=== PATIENT | female | born 1960 | race Hispanic/Latino ===

== ENCOUNTER → 2018-07-22 | Outpatient (CLI) | payer OTHER ==
--- NOTE | 2018-07-22 10:43 | Diagnostic Imaging Report ---
EXAMINATION: PA and lateral views of the chest. COMPARISON: None CLINICAL HISTORY: Obstructive sleep apnea, chest pain, shortness of breath DISCUSSION: Mild left hemidiaphragmatic elevation. Lungs show no evidence of consolidation, pleural effusion, or pneumothorax. Tortuous thoracic aorta. Heart size at the upper limits of normal, without pulmonary edema. No acute osseous abnormality. Mild degenerative disc changes of the thoracic spine. Surgical clips project over the upper abdomen on the lateral radiograph likely related to cholecystectomy. IMPRESSION: No acute cardiopulmonary abnormalities. Signed by: Dr. Familia Bae M.D. on 07/22/2018 10:40 AM
--- NOTE | 2018-07-22 10:55 | Diagnostic Imaging Report ---
EXAM: Bone mineral density study 07/22/2018 9:00 AM INDICATION: ^AGE-RELATED OSTEOPOROSIS W/O CURRENT PATH FX COMPARISON: None FINDINGS: Evaluation of the left hip and lumbar spine was performed. The study is technically adequate. The patient's fracture risk is compared to an age-matched control. The patient denies prior surgery/fracture of the spine, hips or forearm. LEFT HIP * Femoral neck bone mineral density: 0.847 gm/cm2, T-score is 0.0, Z-score is 1.1. * Total bone mineral density: 0.960 gm/cm2, T-score is 0.1, Z-score is 0.9. LUMBAR SPINE * Total bone mineral density: 0.851 gm/cm2, T-score is -1.8, Z-score is -0.6. IMPRESSION: 1. LEFT HIP: Bone mineralization by WHO Classification is normal, the fracture risk is not increased. 2. LUMBAR SPINE: Bone mineralization by WHO Classification is osteopenia, the fracture risk is medium. Signed by: Dr. Alcides Thayer M.D. on 07/22/2018 10:51 AM
== END ==
LOC: RAD 08:42
PROVIDERS: ATTEND Internal Medicine
DX: Z12.31 Encounter for screening mammogram for malignant neoplasm of breast (principal); M81.0 Age-related osteoporosis without current pathological fracture; G47.33 Obstructive sleep apnea (adult) (pediatric)
CPT/HCPCS: 71046; 77067; 77080

== ENCOUNTER 2018-08-08 18:10 | Inpatient (IN) | payer OTHER ==
[~2018-08-08] VITALS: Ht 157.5 cm; Wt 106.8 kg
--- OUTSIDE RECORDS SUMMARY | 2018-08-08 18:12 | XMS REPORT ---
Author Author [facility] Address Unknown Phone Unavailable Care Team Providers Care Class C Truck Driver Name Role Phone RAMIRO SEE Unavailable Unavailable Problems This patient has no known problems. Allergies, Adverse Reactions, Alerts This patient has no known allergies or adverse reactions. Medications This patient has no known medications. Results Test Description Test Time Test Comments Text Results Atomic Results Result Comments MAMMOGRAPHY DIGITAL SCR BILAT 2018-07-22 11:05:00 [place] [address] Patient Name: MAYRA CARBAJAL MR #: [id number] : 1960 Age/Sex: 57/F Req #: [id number] Adm Physician: Ordered by: RAMIRO SEE MD Report #: [id number] Location: [facility] Room/Bed: Procedure: [id number] MG/MAMMOGRAPHY DIGITAL SCR BILAT Exam Date: 07/22/18 Exam Time: 0900 REPORT STATUS: Signed #[id number] - [id number] #BILATERAL DIGITAL SCREENING MAMMOGRAM WITH CAD: 07/22/2018 CLINICAL: Routine screening. Comparison is made to exams dated: 10/23/2013 mammogram and 04/27/2011 mammogram - [facility]. Current study contains 5 films. There are scattered fibroglandular elements in both breasts. Current study was also evaluated with a Computer Aided Detection (CAD) system. There are benign vascular calcifications and calcifications in both breasts. There also are benign lymph nodes in both breasts. No significant masses, calcifications, or other findings are seen in either breast. There has been no significant interval change. IMPRESSION: BENIGN There is no mammographic evidence of malignancy. A 1 year screening mammogram is recommended. The patient will be notified by letter of the results. Amilcar moreno/merritt:07/31/2018 09:55:13 Greens Keeper: So MADRID)(Zain), [facility] letter sent: Compared to Prior B9 Mammogram BI-RADS: 2 Benign Dictated By: AMILCAR GUERRERO DO 4 Transcribed By: MERRITT on 07/31/18954 COPY TO: RAMIRO SEE MD BONE DXA DUAL ENERGY 2018-07-22 10:50:00 [place] [address] Patient Name: MAYRA CARBAJAL MR #: [id number] : 1960 Age/Sex: 57/F Req #: [id number] [facility] Physician: Ordered by: RAMIRO SEE MD Report #: [id number] Location: [facility] Room/Bed: Procedure: [id number] DX/BONE DXA DUAL ENERGY Exam Date: Exam Time: REPORT STATUS: Signed EXAM: Bone mineral density study 07/22/2018 9:00 AM INDICATION: AGE-RELATED OSTEOPOROSIS W/O CURRENT PATH FX COMPARISON: None FINDINGS: Evaluation of the left hip and lumbar spine was performed. The study is technically adequate. The patient's fracture risk is compared to an age-matched control. The patient denies prior surgery/fracture of the spine, hips or forearm. LEFT HIP * Femoral neck bone mineral density: 0.847 gm/cm2, T-score is 0.0, Z-score is 1.1. * Total bone mineral density: 0.960 gm/cm2, T-score is 0.1, Z-score is 0.9. LUMBAR SPINE * Total bone mineral density: 0.851 gm/cm2, T-score is -1.8, Z-score is -0.6. IMPRESSION: 1. LEFT HIP: Bone mineralization by WHO Classification is normal, the fracture risk is not increased. 2. LUMBAR SPINE: Bone mineralization by WHO Classification is osteopenia, the fracture risk is medium. Signed by: Dr. Eve Nelson M.D. on 07/22/2018 10:51 AM Dictated By: EVE NELSON MD 105 Transcri bed By: LORRI on 07/22/18 105 COPY TO: RAMIRO SEE MD CHEST 2 VIEWS 2018-07-22 10:36:00 [place] [address] Patient Name: MAYRA CARBAJAL MR #: [id number] : 1960 Age/Sex: 57/F Req #: [id number] Adm Physician: Ordered by: RAMIRO SEE MD Report #: [id number] Location: [facility] Room/Bed: Procedure: [id number] DX/CHEST 2 VIEWS Exam Date: 07/22/18 Exam Time: 0940 REPORT STATUS: Signed EXAMINATION: PA and lateral views of the chest. COMPAR AZEEM: None CLINICAL HISTORY: Obstructive sleep apnea, chest pain, shortness of breath DISCUSSION: Mild left hemidiaphragmatic elevation. Lungs show no evidence of consolidation, pleural effusion, or pneumothorax. Tortuous thoracic aorta. Heart size at the upper limits of normal, without pulmonary edema. No acute osseous abnormality. Mild degenerative disc changes of the thoracic spine. Surgical clips project over the upper abdomen on the lateral radiograph likely related to cholecystectomy. IMPRESSION: No acute cardiopulmonary abnormalities. Signed by: Dr. Amarilis Reece M.D. on 07/22/2018 10:40 AM Dictated By: AMARILIS REECE MD 1040 Transcribed By: LORRI on 07/22/18 1040 COPY TO: RAMIRO SEE MD
[2018-08-08] MEDS ORDERED: SODIUM CHLORIDE 0.9% 1000ML 1,000 ML IV ONE (19:00)
--- NOTE | 2018-08-08 19:00 | NUR ---
Walking rounds completed with Sushil table games shift manager nurse.
[2018-08-08] MEDS ORDERED: SODIUM CHLORIDE 0.9% 1000ML 1,000 ML ONE (19:03)
[2018-08-08] MEDS ORDERED: DIATRIZOATE MEGL/DIATRIZOA SOD 30 ML BTL PO ONE (19:20)
[2018-08-08 19:24] LABS: BASOPHILS % 0.2 % (0.0-1.0); EOSINOPHILS # (AUTO) 0.1 (0.0-0.4); EOSINOPHILS % 0.4 % (0.0-6.0); HEMOGLOBIN 15.3 g/dL (12.0-16.0); LYMPHOCYTES # (AUTO) 2.8 (1.0-3.2); LYMPHOCYTES % 19.9 % (18.0-39.1); MEAN CORPUSCULAR HEMOGLOBIN 29.2 pg (28-32); MEAN CORPUSCULAR VOLUME 85.9 fL (81-99); MONOCYTES # (AUTO) 0.8 (0.2-0.8); MONOCYTES % 5.7 % (4.4-11.3); NEUTROPHILS # (AUTO) 10.2 (2.1-6.9); NEUTROPHILS % 73.4 % (38.7-80.0); PLATELET COUNT 252 x10e3/uL (140-360); RED BLOOD COUNT 5.24 x10e6/uL (3.6-5.1); RED CELL DISTRIBUTION WIDTH 12.9 % (11.7-14.4)
[2018-08-08] MEDS ORDERED: ONDANSETRON HCL INJ 2MG/ML 2ML 2 MG/ML VIAL IV ONE (19:30)
[2018-08-08] MEDS ORDERED: PANTOPRAZOLE 40 MG 10ML VIAL IV ONE (19:30)
[2018-08-08 19:37] LABS: AMYLASE 67 U/L (25-125); LIPASE 35 U/L (8-78)
[2018-08-08 19:39] LABS: ALANINE AMINOTRANSFERASE 20 IU/L (0-55); ALBUMIN 3.8 g/dL (3.5-5.0); ALBUMIN/GLOBULIN RATIO 1.2 (0.8-2.0); ALKALINE PHOSPHATASE 59 IU/L (40-150); ANION GAP 18.9 mmol/L (8-16); BLOOD UREA NITROGEN 16 mg/dL (7-26); BUN/CREATININE RATIO 19 (6-25); CALCIUM 9.3 mg/dL (8.4-10.2); CARBON DIOXIDE 21 mmol/L (22-29); CHLORIDE 99 mmol/L (98-107); CREATININE, SERUM 0.85 mg/dL (0.57-1.11); EST GLOMERULAR FILTRATION RATE > 60 ML/MIN (60-); GLUCOSE 163 mg/dL (74-118); POTASSIUM 3.9 mmol/L (3.5-5.1); SODIUM 135 mmol/L (136-145)
[2018-08-08] MEDS ORDERED: MORPHINE SULFATE INJ 4 MG/ML INJ 1ML IV ONE (19:45)
[2018-08-08] MEDS: PIPER-TAZ 3.375 GM 50 ML IV SCH ×2 (21:00→22:00)
--- NOTE | 2018-08-08 21:09 | Diagnostic Imaging Report ---
EXAM: CT Abdomen and Pelvis WITH contrast INDICATION: Pain COMPARISON: None. TECHNIQUE: Abdomen and Pelvis was scanned utilizing a multidetector helical scanner after administration of IV contrast. Coronal and sagittal reformations were obtained. IV CONTRAST: 100 mL Isovue-370 COMPLICATIONS: None RADIATION DOSE: Total DLP:804 mGy*cm Estimated effective dose: (DLP x 0.015 x size factor) mSv CTDIvol has been reviewed. It is below the limits set by the Radiation Protocol Committee (RPC). Appropriate CT dose reduction techniques were utilized. FINDINGS: Abdomen: Lung Bases: No acute findings. Solid Organs: Cholecystectomy clips. There is a small amount of free fluid about the liver and spleen. Probable cyst right kidney. Otherwise, liver, adrenals, kidneys, spleen, and pancreas unremarkable. Upper GI Tract: Small hiatal hernia. There are several loops of small bowel in the right mid and lower abdomen with moderate wall thickening and dilated up to 36 mm. Moderate surrounding inflammatory stranding and small amount of fluid present. Gas present right lower quadrant images 43-47 is not distinctly intraluminal. Best demonstrated on coronal images this is a triangular-shaped area with apex in the central mesentery, for example coronal image 36, raising question of closed loop obstruction and/or torsion. Vascularity: Minimal aortic vascular calcifications with no aneurysm. Lymph Nodes: No suspicious adenopathy. Other: None. Pelvis: Bladder: Unremarkable. Other: Within limitations of CT, uterus/adnexa grossly unremarkable. Colon: No acute colonic findings. Appendix not inflamed. Bones: IMPRESSION: 1. Markedly inflamed loops of small bowel in the right mid and lower quadrant with wall thickening, dilation, surrounding inflammatory changes and fluid concerning for closed loop obstruction. Small area of gas right lower quadrant not definitely intraluminal raising question of focal perforation. Surgical consultation recommended. Case discussed with Dr. Gee in the emergency department at 9:00 PM 08/08/2018. Signed by: Dr. Mike Reddy MD on 08/08/2018 9:05 PM
[2018-08-08] MEDS ORDERED: DEXTROSE 50% SYRINGE 50 ML IV PRN (21:15)
[2018-08-08] MEDS ORDERED: ONDANSETRON HCL INJ 2MG/ML 2ML 2 MG/ML VIAL IV PRN (21:15)
[2018-08-08] MEDS ORDERED: MORPHINE SULFATE 2 MG/ML SYR 1ML IV PRN (21:15)
[2018-08-08] MEDS ORDERED: MORPHINE SULFATE INJ 4 MG/ML INJ 1ML IV PRN (21:30)
[2018-08-08] MEDS ORDERED: PIPER-TAZ 3.375 GM / NS 50ML IV SCH (22:00)
[2018-08-08] MEDS: SODIUM CHLORIDE 0.9% 1000ML 1,000 ML IV SCH (22:16)
[2018-08-08] MEDS: METRONIDAZOLE 500MG/NS 100ML 100 ML IV SCH (22:16)
[2018-08-08] MEDS ORDERED: LISINOPRIL10 MG PO (22:32)
[2018-08-08] MEDS ORDERED: farxiga PO (22:32)
[2018-08-08] MEDS ORDERED: ATORVASTATIN CA10 MG PO (22:32)
[2018-08-08] MEDS ORDERED: VITAMIN D350000 UNIT (22:32)
[2018-08-08] MEDS ORDERED: LORATADINE10 MG PO (22:32)
[2018-08-08] MEDS ORDERED: TRADJENTA5 MG PO (22:32)
[2018-08-08] MEDS ORDERED: FLUTICASONE PRO16 GM (22:32)
[2018-08-08] MEDS ORDERED: [UNRECOGNIZED DRUG - OTHER] PO (22:32)
[2018-08-08] MEDS ORDERED: ETODOLAC500 MG PO (22:32)
[2018-08-08] MEDS ORDERED: MONTELUKAST SOD10 MG PO (22:32)
[2018-08-08] MEDS ORDERED: BENZOCAINE 20% SPR 60 ML CAN MT ONE (22:45)
[2018-08-08 23:03] LABS: BILIRUBIN,URINE NEGATIVE (NEGATIVE); CLARITY,URINE HAZY (CLEAR); COLOR,URINE YELLOW (YELLOW); KETONES,URINE 1+ (NEGATIVE); LEUKOCYTE ESTERASE ,URINE NEGATIVE (NEGATIVE); NITRITE,URINE NEGATIVE (NEGATIVE); PROTEIN,URINE DIPSTICK NEGATIVE (NEGATIVE); URINE UROBILINOGEN 0.2 mg/dL (0.2 - 1)
[2018-08-08 23:04] LABS: PREGNANCY TEST, URINE NEGATIVE (NEGATIVE)
[2018-08-08] MEDS: SODIUM CHLORIDE 0.9% 250ML IRRIG IR SCH (23:17)
[2018-08-08 23:22] LABS: BACTERIA,URINE FEW /HPF; EPITHELIAL CELLS,URINE FEW /LPF; RBC,URINE 0-5 /HPF (0-5); YEAST,URINE FEW
[2018-08-08 23:45] VITALS: BP 110/56
--- NOTE | 2018-08-08 23:45 | Diagnostic Imaging Report ---
EXAM: ABDOMEN-1VIEW (KUB) DATE: 08/08/2018 11:11 PM INDICATION: NG tube placement COMPARISON: Same day CT FINDINGS: NG tube present with side holes below GE junction. Cholecystectomy clips. IMPRESSION: NG tube as above. Signed by: Dr. Mike Reddy MD on 08/08/2018 11:42 PM
--- NOTE | 2018-08-08 23:55 | NUR ---
RECEIVED PATIENT VIA STRETCHER WITH FAMILY MEMBER AND HOSPITAL STAFF. PATIENT IS ALERT AND ORIENTED. HAS NG TUBE IN RIGHT NOSTRILS. NO COMPLAINT OF ABDOMINAL PAIN. MADE COMFORTABLE IN BED. CALL LIGHT WITHIN REACH.
[2018-08-09] VITALS (8 sets, daily range): BP systolic 101–118; BP diastolic 51–58
[2018-08-09] MEDS: SODIUM CHLORIDE 0.9% 250ML IRRIG IR SCH ×6 (01:30→21:30)
[2018-08-09] MEDS ORDERED: SODIUM CHLORIDE 0.9% 50ML 50 ML ONE (02:28)
[2018-08-09] MEDS ORDERED: IOPAMIDOL 370 MG/ML 200 ML INFUS..BTL INJ ONE (02:28)
[2018-08-09] MEDS: SODIUM CHLORIDE 0.9% 1000ML 1,000 ML IV SCH ×3 (05:12→20:15)
[2018-08-09] MEDS: PIPER-TAZ 3.375 GM 50 ML IV SCH ×4 (05:16→22:39)
[2018-08-09] MEDS: METRONIDAZOLE 500MG/NS 100ML 100 ML IV SCH ×3 (06:26→20:48)
--- NOTE | 2018-08-09 06:27 | NUR ---
Patient was cleanse with hibiclens.
--- NOTE | 2018-08-09 06:35 | NUR ---
Paged Dr. Kang regarding this consult.
--- NOTE | 2018-08-09 07:09 | NUR ---
NO CALL BACK FROM DR. Abdi MCMILLAN AT THIS TIME.
[2018-08-09] MEDS: INSULIN REGULAR, HUMAN 100 UNIT/1 ML 3ML VIAL SQ SCH ×4 (07:30→21:00)
--- NOTE | 2018-08-09 07:43 | NUR ---
Received patient. Patient awake in bed at this time, no signs of distress. Bed in lowest position, wheels locked, side rails up x2, call light in reach. Will continue to monitor.
[2018-08-09 08:07] LABS: BASOPHILS % 0.2 % (0.0-1.0); EOSINOPHILS # (AUTO) 0.1 (0.0-0.4); EOSINOPHILS % 1.3 % (0.0-6.0); HEMOGLOBIN 12.7 g/dL (12.0-16.0); LYMPHOCYTES # (AUTO) 2.1 (1.0-3.2); MEAN CORPUSCULAR HGB CONC 33.4 g/dL (31-35); MEAN CORPUSCULAR VOLUME 89.6 fL (81-99); MONOCYTES # (AUTO) 0.7 (0.2-0.8); MONOCYTES % 7.8 % (4.4-11.3); NEUTROPHILS # (AUTO) 5.5 (2.1-6.9); NEUTROPHILS % 65.5 % (38.7-80.0); PLATELET COUNT 203 x10e3/uL (140-360); RED BLOOD COUNT 4.24 x10e6/uL (3.6-5.1)
[2018-08-09 08:27] LABS: ANION GAP 11.8 mmol/L (8-16); BLOOD UREA NITROGEN 11 mg/dL (7-26); BUN/CREATININE RATIO 14 (6-25); CALCIUM 8.4 mg/dL (8.4-10.2); CARBON DIOXIDE 24 mmol/L (22-29); CHLORIDE 104 mmol/L (98-107); CREATININE, SERUM 0.76 mg/dL (0.57-1.11); EST GLOMERULAR FILTRATION RATE > 60 ML/MIN (60-); GLUCOSE 115 mg/dL (74-118); SODIUM 135 mmol/L (136-145)
[2018-08-09 08:32] LABS: POTASSIUM 4.8 mmol/L (3.5-5.1)
[2018-08-09] MEDS: FAMOTIDINE 20 MG/2 ML VIAL IV SCH ×2 (09:21→16:29)
--- NOTE | 2018-08-09 10:00 | NUR ---
Patient A/O X3, even respirations on 2LNC. Bowel sounds active, last BM yesterday. Abdomen soft at this time. Patient is ambulatory, using bedside commode. Right NGT set to low continuous suction. Skin is intact. Right AC 18 gauge IV with NS @ 125mls/hr. Patient is NPO at this time, call light in reach. Will continue to monitor.
--- NOTE | 2018-08-09 12:00 | NUR ---
Paged Dr. Kang regarding consult.
--- NOTE | 2018-08-09 13:57 | Diagnostic Imaging Report ---
EXAM: ABDOMEN 2 VIEW INDICATION: Bowel obstruction. COMPARISON: CT abdomen/pelvis 08/08/2018. FINDINGS: Exam is somewhat limited by soft tissue attenuation. Enteric tube projects over the expected location of the distal stomach. Cholecystectomy clips in the right upper quadrant. Contrast is seen within the colon. Nonspecific bowel gas pattern with paucity of air within the small bowel. No evidence of large volume pneumoperitoneum. Next Lung bases demonstrate linear opacities at the right lung base, consistent with subsegmental atelectasis. IMPRESSION: Air and contrast seen within the colon. Nonspecific bowel gas pattern with no air seen within the small bowel. No evidence of large volume pneumoperitoneum, note is made however of possible small area of extraluminal gas on CT from 08/08/2018. Signed by: Dr. Jevon Joaquin MD on 08/09/2018 1:53 PM
--- NOTE | 2018-08-09 16:27 | History and Physical ---
HISTORY OF PRESENT ILLNESS: The patient is a 57-year-old female with past medical history mainly positive for hypertension, diabetes, status post cholecystectomy in the past. Came here with abdominal pain. She was found to have a small-bowel obstruction. Admitted to the hospital. REVIEW OF SYSTEMS CARDIOVASCULAR: No chest pain or palpitations. RESPIRATORY: No shortness of breath. No cough. GASTROINTESTINAL: She did have nausea, abdominal pain and constipation. GENITOURINARY: No frequency or dysuria. ALLERGIES: SHE IS ALLERGIC TO METFORMIN, GABAPENTIN, NITROFURANTOIN, SULFA DRUGS. SOCIAL HISTORY: She does not smoke and does not drink. PAST MEDICAL HISTORY: Diabetes and hypertension. PAST SURGICAL HISTORY: Positive for cholecystectomy. PHYSICAL EXAMINATION VITALS: Blood pressure 101/55, temperature 97.0, heart rate 57 per minute, respiratory rate 20 per minute. Oxygen saturation 95%. HEART: Regular rhythm. Normal S1, S2 sounds. LUNGS: Clear bilaterally. ABDOMEN: Soft. Mild tenderness in the epigastric and left upper quadrant area. No distention. No visceromegaly. EXTREMITIES: No evidence of cyanosis, edema or trauma. LABS: On the BMP, sodium 135, potassium 4.8, chloride 104, CO2 24, BUN 11, creatinine 0.76. Glucose 150. On the CBC, white blood count 8.43, hemoglobin 12.7, hematocrit 38.0 and platelet count 250,000. AST 15, ALT 20, total bilirubin 1.4, alkaline phosphatase 59. CT of the abdomen showed small-bowel obstruction with some inflammatory changes and possible air in the abdomen, but abdominal x-ray done subsequently today showed no evidence of any free air in the abdominal cavity. Most of the air is inside of the colon. FINAL IMPRESSION 1. Small-bowel obstruction. 2. Uncontrolled diabetes mellitus, type 2. 3. Morbid obesity. PLAN OF TREATMENT: Continue n.p.o. NG tube to suction. Continue followup by Dr. Paulino Kang, surgeon. Dr. Demario Deras has been consulted from the gastroenterology point of view. Also, she is on IV antibiotics, Zosyn q.8 h. and metronidazole 500 mg q.8 h. She is on normal saline at 125 mL an hour. Continue monitoring blood sugar q.6 h. Benadryl 25 mg IV q.6 h. as needed. D50 IV push as needed for hypoglycemia. Zofran 4 mg IV q.4 h. as needed. Protonix 40 mg IV daily. Pepcid 20 mg twice a day. Morphine 4 mg IV q.4 h. We are going to do a followup x-ray tomorrow. Job#: [id number]
--- NOTE | 2018-08-09 16:30 | Consultation ---
DATE OF CONSULTATION: August 09, 2018 SURGERY CONSULTATION REASON FOR CONSULTATION: Abdominal pain. HISTORY OF PRESENT ILLNESS: The patient is a 57-year-old pleasant, morbidly obese female admitted complaining of somewhat sudden abdominal pain that developed yesterday. The pain was located in the left side of the abdomen at the level of the umbilicus. There was no nausea, no vomiting. She had a normal bowel movement. She did not have any similar episodes in the past. No recent travel. She is not taking any potassium supplementation . The patient came to the emergency room where she had a CAT scan that revealed inflammatory changes of the small bowel with a question of a closed-loop obstruction. Abdominal plain films reveal no free air. Since admission the pain has significantly decreased. She has passed some gas. PAST MEDICAL HISTORY: Significant for diabetes, morbid obesity, arthritis. PREVIOUS SURGERIES: Include a cholecystectomy for what appears to have been pancreatitis several years ago. MEDICATIONS: See the nurse's list. She is taking multiple oral hypoglycemic agents for her diabetes. ALLERGIES: SHE IS ALLERGIC TO SULFA, GABAPENTIN, METFORMIN, NITROFURANTOIN AND LASIX. SOCIAL HISTORY: She does not drink, does not smoke. FAMILY HISTORY: Noncontributory. Admission laboratories reveal a white count of 14,000 with a hematocrit of 45, normal platelet count. Since admission her white count has decreased to 8.28 with a hematocrit of 38, normal posterolateral corner. Admission electrolytes are normal. Blood sugar is 103. Admission radiologic studies have already been discussed. ASSESSMENT: Abdominal pain with inflammatory changes in the small bowel, the etiology of which is unclear. The CT scan raises the possibility of a closed-loop obstruction. However, the patient is getting better. She has no acute abdominal pain at this time, and clinically she does not have an acute abdomen. The source of this inflammatory process is not clear at this time. She does not have any history compatible with inflammatory bowel syndrome. I doubt that she has a closed-loop obstruction at this time given her benign course of action and the lack of any GI symptoms. PLAN: As previously stated, the source of this inflammatory process is not clear. It is possible she had a perforation of a diverticulum of the jejunum, inflammatory bowel disease or other considerations. At this time I would continue with current treatment with n.p.o., IV fluids, antibiotics. Will repeat an abdomen two views now to make sure that there is not any evidence of small-bowel obstruction or an increasing distention due to closed loop obstruction of the small bowel. Further care and suggestions will depend upon the clinical course of the patient. This has been discussed with her and her . They agree with the plan. Thank you very much for the courtesy of this consultation. : 08/09/2018 12:19 Job#: [id number] EV MTDD
--- NOTE | 2018-08-09 19:10 | NUR ---
REPORT RECEIVED FROM OFF GOING NURSE, PT RESTING IN BED ALERT AND ORIENTED, NG TO LIS TO WALL, IV INFUSING PER ORDER, DENIES NEEDS, CALL LIGHT IN REACH, HOB ELEVATED, INSTRUCTED TO CALL WITH NEEDS
[2018-08-09] MEDS: DIPHENHYDRAMINE HCL INJ 50 MG/ML VIAL IV PRN (21:37)
[2018-08-10] VITALS (9 sets, daily range): BP systolic 90–133; BP diastolic 51–80
[2018-08-10] MEDS: SODIUM CHLORIDE 0.9% 250ML IRRIG IR SCH ×6 (01:30→20:03)
[2018-08-10] MEDS: SODIUM CHLORIDE 0.9% 1000ML 1,000 ML IV SCH ×3 (05:12→21:12)
--- NOTE | 2018-08-10 05:24 | NUR ---
PT GETTING BACK IN BED FROM BSC, NO DISTRESS NOTED, HOB ELEVATED, NG TO LIS, O2 NC WORN,BED LOCKED AND LOW, CALL LIGHT IN REACH, INSTRUCTED TO CALL WITH NEEDS, DENIES NEEDS AT THIS TIME
[2018-08-10] MEDS: PIPER-TAZ 3.375 GM 50 ML IV SCH ×3 (05:26→21:17)
[2018-08-10] MEDS: METRONIDAZOLE 500MG/NS 100ML 100 ML IV SCH ×3 (06:00→21:15)
[2018-08-10 06:08] LABS: ALANINE AMINOTRANSFERASE 15 IU/L (0-55); ALBUMIN 3.1 g/dL (3.5-5.0); ALBUMIN/GLOBULIN RATIO 1.1 (0.8-2.0); ALKALINE PHOSPHATASE 47 IU/L (40-150); ANION GAP 13.1 mmol/L (8-16); BLOOD UREA NITROGEN 9 mg/dL (7-26); BUN/CREATININE RATIO 12 (6-25); CALCIUM 7.9 mg/dL (8.4-10.2); CARBON DIOXIDE 22 mmol/L (22-29); CHLORIDE 109 mmol/L (98-107); CREATININE, SERUM 0.75 mg/dL (0.57-1.11); EST GLOMERULAR FILTRATION RATE > 60 ML/MIN (60-); GLUCOSE 86 mg/dL (74-118); POTASSIUM 4.1 mmol/L (3.5-5.1); SODIUM 140 mmol/L (136-145)
--- NOTE | 2018-08-10 06:39 | Diagnostic Imaging Report ---
EXAM: ABDOMEN 2 VIEW DATE: 08/10/2018 6:00 AM INDICATION: Small bowel obstruction COMPARISON: Previous day FINDINGS: Cholecystectomy clips. Side holes of NG tube below GE junction. Residual contrast in the colon. Small bowel gas pattern nonspecific. IMPRESSION: As above. Signed by: Dr. Mike Reddy MD on 08/10/2018 6:35 AM
[2018-08-10 06:43] LABS: BASOPHILS % 0.3 % (0.0-1.0); EOSINOPHILS # (AUTO) 0.1 (0.0-0.4); EOSINOPHILS % 1.6 % (0.0-6.0); HEMATOCRIT 36.1 % (34.2-44.1); HEMOGLOBIN 11.9 g/dL (12.0-16.0); LYMPHOCYTES # (AUTO) 1.8 (1.0-3.2); LYMPHOCYTES % 22.6 % (18.0-39.1); MEAN CORPUSCULAR HEMOGLOBIN 29.8 pg (28-32); MEAN CORPUSCULAR VOLUME 90.5 fL (81-99); MONOCYTES # (AUTO) 0.6 (0.2-0.8); MONOCYTES % 7.6 % (4.4-11.3); NEUTROPHILS # (AUTO) 5.3 (2.1-6.9); NEUTROPHILS % 67.5 % (38.7-80.0); PLATELET COUNT 187 x10e3/uL (140-360); RED BLOOD COUNT 3.99 x10e6/uL (3.6-5.1); RED CELL DISTRIBUTION WIDTH 12.8 % (11.7-14.4)
[2018-08-10] MEDS: INSULIN REGULAR, HUMAN 100 UNIT/1 ML 3ML VIAL SQ SCH ×4 (07:30→21:00)
--- NOTE | 2018-08-10 09:20 | NUR ---
Patient A/O X3, even respirations on 2LNC. Patient is ambulatory with assist and voids in BSC. NGT to right nare set to low continuous suction. Patient is currently NPO. Right AC 18 gauge with NS @ 125mls/hr. Skin is intact. Patient has a alternating pressure mattress. Slight abdominal pain to the left side. Call light in reach, will continue to monitor.
[2018-08-10] MEDS: FAMOTIDINE 20 MG/2 ML VIAL IV SCH ×2 (09:27→17:47)
[2018-08-10] MEDS: PANTOPRAZOLE 40 MG 10ML VIAL IV SCH (09:27)
--- NOTE | 2018-08-10 14:13 | Progress Note ---
DATE: INTERNAL MEDICINE PROGRESS NOTE SUBJECTIVE: A 57-year-old female who came here with bowel obstruction. PHYSICAL EXAM VITAL SIGNS: Blood pressure 104/52, temperature 97.7, heart rate 61 per minute, respiratory rate is 18 per minute, oxygen saturation 96%. HEART: Regular rhythm. Normal S1, S2 sounds. LUNGS: Clear bilaterally. ABDOMEN: Soft. No distention. No visceromegaly. EXTREMITIES: Show no evidence of cyanosis, edema, or trauma. LABS: On the BMP, sodium 141, potassium 4.1, chloride 109, CO2 of 22, BUN 9, creatinine 0.75, glucose 86. On the CBC, white blood count 7.88, hemoglobin 11.9, hematocrit 36.1, platelet count 187,000. AST 12, ALT 15, total bilirubin 1.6, alkaline phosphatase 47. FINAL IMPRESSION 1. Small bowel obstruction, which is slowly resolving. 2. Uncontrolled diabetes mellitus, type 2. 3. Morbid obesity. PLAN OF TREATMENT: Continue n.p.o. status. Continue nasogastric tube to suction. Continue Zosyn 3.375 grams IV q.8 hours and Flagyl 500 mg IV every 8 hours. Continue normal saline 125 mL an hour. Continue monitoring blood sugar q.6 hours. Benadryl 25 mg q.6 hours. D50 IV push as needed for hypoglycemia. Continue Zofran 4 mg IV q.4 hours as needed. Protonix 40 mg IV daily. Pepcid 20 mg IV twice a day. Morphine 12 mg IV q.4 hours as needed. Continue surgical followup by Dr. Bertram Kang and Dr. Demario Deras for gastroenterology. We are going to do another followup KUB tomorrow. Job#: [id number] NATE
--- NOTE | 2018-08-10 17:56 | NUR ---
Replaced NGT canister.
--- NOTE | 2018-08-10 19:10 | NUR ---
REPORT RECEIVED FROM OFF GOING NURSE, PT RESTING IN BED WITH HOB ELEVATED, VISITING WITH FAMILY, CALL LIGHT IN REACH, INSTRUCTED TO CALL WITH NEEDS, NG TO LIS TO WALL, IV INFUSING PER ORDER
[2018-08-10] MEDS: DIPHENHYDRAMINE HCL INJ 50 MG/ML VIAL IV PRN (19:36)
[2018-08-11] MEDS: DEXTROSE 5%/LACTATED RINGERS 1,000 ML IV SCH ×3 (01:30→22:31)
[2018-08-11] MEDS: SODIUM CHLORIDE 0.9% 250ML IRRIG IR SCH ×8 (01:30→21:38)
[2018-08-11 05:10] VITALS: BP 116/66
[2018-08-11] MEDS: PIPER-TAZ 3.375 GM 50 ML IV SCH ×3 (06:00→22:32)
[2018-08-11] MEDS: METRONIDAZOLE 500MG/NS 100ML 100 ML IV SCH ×3 (06:00→22:29)
--- NOTE | 2018-08-11 06:08 | NUR ---
PT RESTING IN BED ALERT AND ORIENTED, NO DISTRESS NOTED, HOB ELEVATED, NG TO LIS TO WALL, IV INFUSING PER ORDER, CALL LIGHT IN REACH, INSTRUCTED TO CALL WITH NEEDS
[2018-08-11 06:23] LABS: BASOPHILS % 0.3 % (0.0-1.0); EOSINOPHILS # (AUTO) 0.1 (0.0-0.4); EOSINOPHILS % 1.8 % (0.0-6.0); HEMATOCRIT 36.1 % (34.2-44.1); HEMOGLOBIN 12.2 g/dL (12.0-16.0); LYMPHOCYTES # (AUTO) 1.7 (1.0-3.2); LYMPHOCYTES % 25.6 % (18.0-39.1); MEAN CORPUSCULAR HEMOGLOBIN 29.6 pg (28-32); MEAN CORPUSCULAR HGB CONC 33.8 g/dL (31-35); MEAN CORPUSCULAR VOLUME 87.6 fL (81-99); MONOCYTES # (AUTO) 0.5 (0.2-0.8); MONOCYTES % 6.8 % (4.4-11.3); NEUTROPHILS # (AUTO) 4.4 (2.1-6.9); NEUTROPHILS % 65.2 % (38.7-80.0); PLATELET COUNT 188 x10e3/uL (140-360); RED BLOOD COUNT 4.12 x10e6/uL (3.6-5.1); RED CELL DISTRIBUTION WIDTH 12.5 % (11.7-14.4)
[2018-08-11 06:36] LABS: ALANINE AMINOTRANSFERASE 14 IU/L (0-55); ALBUMIN 3.2 g/dL (3.5-5.0); ALKALINE PHOSPHATASE 50 IU/L (40-150); ANION GAP 13.5 mmol/L (8-16); BLOOD UREA NITROGEN 7 mg/dL (7-26); BUN/CREATININE RATIO 10 (6-25); CALCIUM 8.2 mg/dL (8.4-10.2); CARBON DIOXIDE 18 mmol/L (22-29); CHLORIDE 107 mmol/L (98-107); EST GLOMERULAR FILTRATION RATE > 60 ML/MIN (60-); GLUCOSE 99 mg/dL (74-118); POTASSIUM 3.5 mmol/L (3.5-5.1); SODIUM 135 mmol/L (136-145)
--- NOTE | 2018-08-11 07:26 | NUR ---
Received patient. Patient awake in bed at this time. Helped patient onto bedside commode and back to bed. Wheels locked, bed in lowest position, side rails up x2, call light in reach. Will continue to monitor.
[2018-08-11] MEDS: INSULIN REGULAR, HUMAN 100 UNIT/1 ML 3ML VIAL SQ SCH ×4 (07:30→21:36)
[2018-08-11 08:17] VITALS: BP 126/60
[2018-08-11] MEDS: PANTOPRAZOLE 40 MG 10ML VIAL IV SCH (08:54)
[2018-08-11] MEDS: FAMOTIDINE 20 MG/2 ML VIAL IV SCH ×2 (08:54→17:06)
[2018-08-11 09:36] VITALS: BP 126/60
--- NOTE | 2018-08-11 10:30 | NUR ---
Patient A/O X3, even respirations unlabored on RA. Last BM this morning, bowel sounds active, abdomen soft. NGT in right nare set to low continuous suction. Patient is currently NPO, right AC 18 gauge with D5LR @ 125mls/hr. Skin is intact, spouse at bedside. No complaints of pain or discomfort at this time. Call light in reach, will continue to monitor.
[2018-08-11 11:56] VITALS: BP 141/65
--- NOTE | 2018-08-11 14:33 | Progress Note ---
DATE: INTERNAL MEDICINE PROGRESS NOTE SUBJECTIVE: Patient is doing well. She is feeling much better than yesterday. PHYSICAL EXAM VITAL SIGNS: Blood pressure 141/65, temperature is 97.8, heart rate 52 per minute, respiratory rate is 20 per minute, oxygen saturation 100%. HEART: Regular rhythm. Normal S1, S2 sounds. LUNGS: Clear bilaterally. ABDOMEN: Soft. No tension, retention, or visceromegaly. LABORATORY DATA: On the BMP, sodium 135, potassium 3.5, chloride 107, CO2 of 18, BUN 7, creatinine 0.70, glucose 99. On the CBC, white blood count 6.75, hemoglobin 12.2, hematocrit 36.1, platelet count 188,000. AST 14, ALT 14, total bilirubin 1.4, alkaline phosphatase 50. FINAL IMPRESSION 1. Small bowel obstruction. 2. Enteritis. 3. Uncontrolled diabetes mellitus, type 2. 4. Morbid obesity. PLAN OF TREATMENT: Continue NPO status. Continue NG tube to suction. Continue Zosyn 3.375 grams IV q.8 hours, metronidazole 500 mg IV q.8. Continue with IV fluids, dextrose with lactated Ringer's at 125 mL an hour. Continue monitoring blood sugar q.6 hours. Continue Benadryl 25 mg IV q.6 hours as needed. Continue Zofran 4 mg IV q.4 hours as needed. Continue Protonix 40 mg IV daily, Pepcid 20 mg twice a day, and morphine 4 mg IV q.4 hours as needed. We are going to order another KUB to see if there is resolution of small bowel obstruction. If it is, we can go ahead and remove the NG tube and start liquid diet. Dr. Paulino Kang is seeing the patient from the surgical point of view and Dr. Demario Deras from gastroenterology point of view. Job#: [id number] NATE
--- NOTE | 2018-08-11 14:48 | NUR ---
Patient left for abdominal x-ray at this time via wheelchair. No signs of distress.
--- NOTE | 2018-08-11 15:00 | NUR ---
Patient back from abdominal x-ray at this time.
--- NOTE | 2018-08-11 15:08 | Diagnostic Imaging Report ---
EXAM: Abdomen 1 Views INDICATION: Small bowel obstruction. COMPARISON: KUB 08/10/2017. 08/09/2018. 08/08/2018. FINDINGS: NG tube tip is at the lower superior Residual contrast is in the colon especially in the rectum. This has progressed since prior exam. No dilated loops of small bowel. No renal calculi. No abnormal soft tissue masses. Mild degenerative changes in the lumbar spine and pelvis. IMPRESSION: 1. Progression of the oral contrast into the rectum. 2. No dilated small bowel loops. Signed by: Dr. Alcides Thayer M.D. on 08/11/2018 3:05 PM
--- NOTE | 2018-08-11 15:15 | NUR ---
Visit made by the Spiritual Care Department Pastoral Visitor, Jeffry Wood. PV provided pastoral presence, hospitality, and supportive listening. Pastoral Visitor informed pt/family of the scope of [employer] and availability. BELIA MONTANEZ Parts Delivery Driver Spiritual Care Department O: [phone] Pager: [phone] ([phone] number calling from)
[2018-08-11 16:17] VITALS: BP 133/61
--- NOTE | 2018-08-11 17:16 | NUR ---
Removed NGT. NGT tip intact.
--- NOTE | 2018-08-11 19:22 | NUR ---
Report received and walking rounds complete. Pt resting in bed and in no apparent distress. All safety measures ensured, bed alarm on and pt call renner near. Pt encouraged to use call renner for assistance.
[2018-08-11 20:00] VITALS: BP 127/72
[2018-08-11] MEDS: BISACODYL 10 MG SUPP PR SCH (21:36)
[2018-08-12] VITALS (8 sets, daily range): BP systolic 119–138; BP diastolic 55–73
[2018-08-12] MEDS: PIPER-TAZ 3.375 GM 50 ML IV SCH ×3 (05:12→21:20)
[2018-08-12] MEDS: METRONIDAZOLE 500MG/NS 100ML 100 ML IV SCH ×3 (06:39→22:17)
--- NOTE | 2018-08-12 07:28 | NUR ---
report given to day shift nurse and walking round complete.
[2018-08-12] MEDS: INSULIN REGULAR, HUMAN 100 UNIT/1 ML 3ML VIAL SQ SCH ×5 (07:30→21:00)
[2018-08-12] MEDS: PANTOPRAZOLE 40 MG 10ML VIAL IV SCH (09:09)
[2018-08-12] MEDS: DEXTROSE 5%/LACTATED RINGERS 1,000 ML IV SCH ×3 (09:09→19:10)
[2018-08-12] MEDS: FAMOTIDINE 20 MG/2 ML VIAL IV SCH ×2 (09:09→17:47)
[2018-08-12] MEDS: BISACODYL 10 MG SUPP PR SCH (09:09)
--- NOTE | 2018-08-12 11:10 | Consultation ---
DATE OF CONSULTATION: ADDENDUM TO CONSULTATION DATED 08/09/2018 PHYSICAL EXAMINATION GENERAL: A 57-year-old, obese female who is in no acute distress. HEENT: No acute process. LUNGS: Clear. HEART: Regular sinus rhythm. ABDOMEN: Obese, soft, without any tenderness or any palpable masses or hernias. EXTREMITIES: No clubbing, cyanosis or edema. Job#: [id number]
--- NOTE | 2018-08-12 12:17 | NUR ---
MD Lázaro GRIFFIN ORDERED PT TO HAVE CLEAR LIQUID AT THIS TIME
--- NOTE | 2018-08-12 14:32 | NUR ---
CASE MANAGEMENT INITIAL ASSESSMENT [employer] Service Technician to bedside to discuss plan of care with patient/family. CM/SW role and care transitions discussed. Anticipated discharge plan discussed along with duration of care. CM/SW discussed patients right to make decisions in care. CM/SW work hours given. Patient lives: with Mois[facility] Admit/Transfer: thru ED Hospital/ER visits since last admit: last hospitalization 12 years ago. no ED visits POA/Emergency contact: Moisés Webb [phone] Current/Previous Home Health: none PCP/Follow-up Care: Dr. Cary Current/Previous DME: none Medications (referring to index hospitalization or the first time you were in the hospital) a. Were changes made in your medications when you were in the hospital on [date of index hospitalization]? n/a b. Did you understand the changes? n/a c. Were you able to obtain your new medications right away? n/a d. Were you able to take your medications like the doctor wanted you to? n/a e. Did the hospital give you an accurate, easy to understand list of medications when you left? n/a Scale of 1-10 how comfortable does patient feel with disease management in outpatient settin Other Services: none Employment Status: employed with [employer] Areas of Concerns: bowel obstruction Referral Needs: none Education Needs: none IMM/PEÑA given and signed (if applicable): n/a Goal for discharge: home CM/SW left business card at the bedside with contact information. Name and number was also written on the patients whiteboard. Patient verbalized understanding of discussion. CM will follow-up with ongoing discharge and transition of care needs.
[2018-08-12] MEDS: DIPHENHYDRAMINE HCL INJ 50 MG/ML VIAL IV PRN (21:27)
[2018-08-13 04:00] VITALS: BP 113/53
[2018-08-13] MEDS: DEXTROSE 5%/LACTATED RINGERS 1,000 ML IV SCH (04:56)
[2018-08-13] MEDS: PIPER-TAZ 3.375 GM 50 ML IV SCH (05:24)
[2018-08-13] MEDS: METRONIDAZOLE 500MG/NS 100ML 100 ML IV SCH (06:06)
--- NOTE | 2018-08-13 08:18 | NUR ---
PT LYING IN BED RESP EVEN AND UNLABORED AT THIS TIME NO DISTRESS NOTED PT ABLE TO MAKE NEEDS KNOWN, CALL LIGHT IN REACH.
[2018-08-13 08:20] VITALS: BP 113/55
[2018-08-13] MEDS: PANTOPRAZOLE 40 MG 10ML VIAL IV SCH (09:00)
[2018-08-13] MEDS: FAMOTIDINE 20 MG/2 ML VIAL IV SCH (09:00)
[2018-08-13] MEDS: INSULIN REGULAR, HUMAN 100 UNIT/1 ML 3ML VIAL SQ SCH ×2 (10:33→11:30)
--- NOTE | 2018-08-13 11:00 | NUR ---
pt discharge home with prescription ,pt and family member were educated on medication, and follow ups, iv site removed no swelling no redness to site.
[2018-08-13 12:42] VITALS: BP 136/78
== END 2018-08-13 14:30 | disposition home or self-care (01) | DRG 389 ==
LOC: ER 18:10 → ERHOLD 21:40 → MED/SURG 23:55
PROVIDERS: ADMIT Internal Medicine; ATTEND Internal Medicine
DX: K56.600 Partial intestinal obstruction, unspecified as to cause (principal); R57.9 Shock, unspecified; Z68.41 Body mass index [BMI] 40.0-44.9, adult; K52.9 Noninfective gastroenteritis and colitis, unspecified; K80.80 Other cholelithiasis without obstruction; E11.65 Type 2 diabetes mellitus with hyperglycemia; E66.01 Morbid (severe) obesity due to excess calories; Z90.49 Acquired absence of other specified parts of digestive tract; Z88.2 Allergy status to sulfonamides; Z88.8 Allergy status to other drugs, medicaments and biological substances
CPT/HCPCS: 36415; 74018; 74019; 74177; 80048; 80053; 81001; 81025; 82150; 82948; 83605; 83690; 85025; 86850; 86900; 87040; 93005; 96365; 99284; J1200; J2270; J2405; J2543; J7030; Q9967

== ENCOUNTER → 2018-09-21 | Day surgery (SDC) | payer OTHER ==
[2018-09-18 12:03] LABS: BASOPHILS % 0.4 % (0.0-1.0); EOSINOPHILS # (AUTO) 0.1 (0.0-0.4); EOSINOPHILS % 1.5 % (0.0-6.0); HEMATOCRIT 40.5 % (34.2-44.1); HEMOGLOBIN 13.5 g/dL (12.0-16.0); LYMPHOCYTES # (AUTO) 1.7 (1.0-3.2); LYMPHOCYTES % 25.5 % (18.0-39.1); MEAN CORPUSCULAR HEMOGLOBIN 29.5 pg (28-32); MEAN CORPUSCULAR HGB CONC 33.3 g/dL (31-35); MEAN CORPUSCULAR VOLUME 88.4 fL (81-99); MONOCYTES # (AUTO) 0.4 (0.2-0.8); MONOCYTES % 6.3 % (4.4-11.3); NEUTROPHILS # (AUTO) 4.5 (2.1-6.9); NEUTROPHILS % 66.2 % (38.7-80.0); PLATELET COUNT 284 x10e3/uL (140-360); RED BLOOD COUNT 4.58 x10e6/uL (3.6-5.1); RED CELL DISTRIBUTION WIDTH 12.8 % (11.7-14.4)
[~2018-09-21] MED LIST: ATORVASTATIN CA10 MG PO; ETODOLAC500 MG PO; FENOPROFEN CAL600 MG PO; FENTANYL CITRATE/PF 100MCG/2 ML INJ ONE; FLUTICASONE PRO16 GM; HYOSCYAMINE SULFATE 0.5 MG/ML INJ ONE; LIDOCAINE HCL 2% LOCAL INJ 5 ML SDV VIAL INJ ONE; LISINOPRIL10 MG PO; LORATADINE10 MG PO; LUMIGAN2.5 M1 OP; MIDAZOLAM HCL 2 MG/2 ML VIAL ONE; MONTELUKAST SOD10 MG PO; PRESERVISION T1 EACH PO; PROPOFOL IV EMULSION 10 MG/ML 50 ML VIAL ONE; QVAR INH; TRADJENTA5 MG PO; VITAMIN D350000 UNIT PO; [UNRECOGNIZED DRUG - OTHER] PO; farxiga PO
[2018-09-21 10:00] VITALS: BP 120/70
--- NOTE | 2018-09-21 16:17 | Operative Report ---
DATE OF PROCEDURE: 09/21/2018 SURGEON: Demario Deras MD PROCEDURE: EGD with biopsies and esophageal dilatation and a colonoscopy with polypectomy. INDICATIONS FOR EGD: Heartburn, indigestion, dysphagia to solids. INDICATIONS FOR COLONOSCOPY: Colorectal cancer screening. MEDICATIONS: The patient was done under MAC, please see anesthesiologist's note. PROCEDURE IN DETAIL: With the patient in left lateral decubitus position, a flexible fiberoptic Olympus gastroscope was introduced into the esophagus under direct visualization without any difficulty. There was some patchy erythema noted in the distal esophagus. A mild stricture was noted at the GE junction, that was dilated to size 52-Prydeinig Jenkins. The scope was then advanced with ease into the stomach. Mucosa overlying the antrum and the body revealed some patchy erythema, [id number] edema, and biopsies were obtained and sent to stain for Helicobacter pylori. A minute nodule was noted in the proximal body along the anterior wall and that was biopsied. The pylorus was of normal contour and shape, was intubated with ease, and the scope was advanced all the way to the second portion of the duodenum. The scope was then withdrawn slowly and the mucosa overlying the proximal second portion and duodenal bulb grossly appeared to be within normal limits. Biopsies were obtained to rule out sprue. The scope was then withdrawn back into the stomach and retroflexed, and mucosa overlying the fundus and the cardia appeared to be within normal limits. The scope was then straightened out and it was subsequently withdrawn. The patient tolerated the procedure well. IMPRESSION: 1. Distal esophagitis, mild. 2. Esophageal stricture at gastroesophageal junction, dilated to size 52-Prydeinig Jenkins. 3. Gastritis, biopsied, and biopsies sent to stain for Helicobacter pylori. 4. Gastric nodule, body, minute, biopsied. 5. Rule out sprue. PLAN: Follow up histology. Initiate Protonix 40 mg 1 p.o. q.a.m. a.c. The patient was then turned around, and after adequate lubrication of the anal canal, flexible fiberoptic Olympus colonoscope was inserted into the rectum with ease and advanced all the way to the cecum. Mucosa overlying the cecum appeared to be within normal limits. A minute polyp was noted in the ileocecal valve that was hot biopsied. The ascending and transverse appeared to be within normal limits. One polyp was hot biopsied from the descending colon. Three polyps were hot biopsied from the sigmoid colon. The rectum grossly appeared to be within normal limits. The scope was then retroflexed into the distal rectum. Small internal hemorrhoids were noted, none of which was actively bleeding. The scope was then straightened out and it was subsequently withdrawn. The patient tolerated the procedure well. IMPRESSION: 1. Ileocecal valve polyp, hot biopsied. 2. Descending colon polyp, hot biopsied. 3. Sigmoid colon polyps x3, hot biopsied. 4. Internal hemorrhoids, none actively bleeding. PLAN: Follow up histology. Initiate high-fiber, low-fat diet. Initiate high-fiber supplement. Start VSL #3 one p.o. daily. The patient might benefit from a followup colonoscopy in 3 years. Demario Deras MD [facility] [place] /[id number] cc: Perry Cary MD
== END | disposition home or self-care (01) ==
LOC: OR 06:11
PROVIDERS: ATTEND Internal Medicine Gastroenterology
DX: Z12.11 Encounter for screening for malignant neoplasm of colon (principal); D12.4 Benign neoplasm of descending colon; K22.2 Esophageal obstruction; K29.50 Unspecified chronic gastritis without bleeding; K20.9 Esophagitis, unspecified; K31.89 Other diseases of stomach and duodenum; K63.5 Polyp of colon; K64.8 Other hemorrhoids; R14.0 Abdominal distension (gaseous); R12 Heartburn; K92.1 Melena; R13.10 Dysphagia, unspecified; Z86.010 Personal history of colon polyps; K76.0 Fatty (change of) liver, not elsewhere classified; G47.33 Obstructive sleep apnea (adult) (pediatric); I10 Essential (primary) hypertension; E11.9 Type 2 diabetes mellitus without complications; E78.5 Hyperlipidemia, unspecified; Z88.2 Allergy status to sulfonamides; Z88.8 Allergy status to other drugs, medicaments and biological substances; Z91.040 Latex allergy status; Z87.19 Personal history of other diseases of the digestive system; K59.09 Other constipation; R14.2 Eructation; Z01.810 Encounter for preprocedural cardiovascular examination; Z01.812 Encounter for preprocedural laboratory examination
CPT/HCPCS: 36415 ×2; 43239; 43450; 45384; 82948; 85025; 93005; J1980; J2001; J2250; J2704

== ENCOUNTER → 2020-09-23 | Outpatient (CLI) | payer OTHER ==
[~2020-09-23] MED LIST changes: -FENTANYL CITRATE/PF 100MCG/2 ML INJ ONE; -HYOSCYAMINE SULFATE 0.5 MG/ML INJ ONE; -LIDOCAINE HCL 2% LOCAL INJ 5 ML SDV VIAL INJ ONE; -MIDAZOLAM HCL 2 MG/2 ML VIAL ONE; -PROPOFOL IV EMULSION 10 MG/ML 50 ML VIAL ONE
== END ==
LOC: MAMMO 08:14
PROVIDERS: ATTEND Internal Medicine
DX: Z12.31 Encounter for screening mammogram for malignant neoplasm of breast (principal); I10 Essential (primary) hypertension
CPT/HCPCS: 71046; 77067

== ENCOUNTER → 2020-10-29 | Day surgery (SDC) | payer OTHER ==
[2020-10-26 09:43] LABS: BASOPHILS % 0.5 % (0.0-1.0); EOSINOPHILS # (AUTO) 0.2 (0.0-0.4); EOSINOPHILS % 2.4 % (0.0-6.0); HEMATOCRIT 44.1 % (34.2-44.1); HEMOGLOBIN 14.8 g/dL (12.0-16.0); LYMPHOCYTES # (AUTO) 2.5 (1.0-3.2); MEAN CORPUSCULAR HEMOGLOBIN 29.7 pg (28-32); MEAN CORPUSCULAR HGB CONC 33.6 g/dL (31-35); MEAN CORPUSCULAR VOLUME 88.6 fL (81-99); MONOCYTES # (AUTO) 0.5 (0.2-0.8); MONOCYTES % 8.3 % (4.4-11.3); NEUTROPHILS # (AUTO) 3.1 (2.1-6.9); NEUTROPHILS % 49.5 % (38.7-80.0); PLATELET COUNT 216 x10e3/uL (140-360); RED BLOOD COUNT 4.98 x10e6/uL (3.6-5.1); RED CELL DISTRIBUTION WIDTH 12.4 % (11.7-14.4)
[~2020-10-29] MED LIST changes: +ALBUTEROL0.63 MG/3 NEB; +ASPIRIN81 MG PO; +DICYCLOMINE HCL10 MG PO; +FAMOTIDINE10 MG PO; +IBUPROFEN600 MG PO; +JARDIANCE25 MG PO; +OMEPRAZOLE40 MG PO; +OZEMPIC1 MG/0.75 SC; +PANTOPRAZOLE 40 MG 10ML VIAL ONE; +PROBIOTIC PO; +PROPOFOL IV EMULSION 10 MG/ML 20 ML VIAL ONE; +PROVENTIL HFA6.7 GM INH; +RESTASIS1 EACH OU; +TRELEGY ELLIPT1 EACH INH
[2020-10-29 08:35] VITALS: BP 112/66
== END | disposition home or self-care (01) ==
LOC: ENDO 05:46
PROVIDERS: ATTEND Internal Medicine Gastroenterology
DX: K20.90 Esophagitis, unspecified without bleeding (principal); K29.50 Unspecified chronic gastritis without bleeding; K31.1 Adult hypertrophic pyloric stenosis; K31.89 Other diseases of stomach and duodenum; K21.9 Gastro-esophageal reflux disease without esophagitis; Z86.010 Personal history of colon polyps; K59.01 Slow transit constipation; K58.9 Irritable bowel syndrome, unspecified; G47.33 Obstructive sleep apnea (adult) (pediatric); J45.909 Unspecified asthma, uncomplicated; E78.5 Hyperlipidemia, unspecified; I10 Essential (primary) hypertension; E11.9 Type 2 diabetes mellitus without complications; R00.1 Bradycardia, unspecified; H40.9 Unspecified glaucoma; Z88.2 Allergy status to sulfonamides; Z88.8 Allergy status to other drugs, medicaments and biological substances; Z88.6 Allergy status to analgesic agent; Z88.1 Allergy status to other antibiotic agents; Z91.040 Latex allergy status; Z01.810 Encounter for preprocedural cardiovascular examination; Z01.812 Encounter for preprocedural laboratory examination; Z20.822 Contact with and (suspected) exposure to COVID-19; Z79.82 Long term (current) use of aspirin; Z68.42 Body mass index [BMI] 45.0-49.9, adult
CPT/HCPCS: 36415 ×2; 43239; 43245; 82948; 85025; 93005; C9113; J2704; U0002; 43450

== ENCOUNTER → 2021-10-24 | Outpatient (CLI) | payer OTHER ==
[~2021-10-24] MED LIST changes: -PANTOPRAZOLE 40 MG 10ML VIAL ONE; -PROPOFOL IV EMULSION 10 MG/ML 20 ML VIAL ONE
== END ==
LOC: MAMMO 13:14
PROVIDERS: ATTEND Obstetrics & Gynecology
DX: Z12.31 Encounter for screening mammogram for malignant neoplasm of breast (principal)
CPT/HCPCS: 77067